=== PATIENT | female | born 1955 | race Caucasian/White ===

== ENCOUNTER 2016-11-25 08:29 | Outpatient (RCR) | payer OTHER ==
[~2016-11-25 08:29] MED LIST: ACID REDUCER PO; ACTOS 45MG45 MG/TAB PO; AMBIEN 10MG10 MG PO; AVAPRO300 M1 PO; AVAPRO300 MG PO; DIFLUCAN200 MG PO; FISH OIL CONC1000 MG PO; FLAXSEED OIL1000 MG PO; GLUCOSAMINE/CHONDROI PO; GLUCOSAMINE500 M2 PO; HCTZ 25MG25 MG PO; HCTZ12.5TAB PO; LEVOTHYROXIN PO; MOBIC15 MG PO; PROVENTIC PO; PROVENTIL0.09 MG/A1 IH; SYNTHROID 0.0.025 MG PO; SYSTANE 0.4%-0.1 SOL OP; TYLENOL 500MG500 MG PO; TYLENOL W/COD1 UDTAB PO; ULTRAM 50MG TAB50 MG PO; VITAMIN D 50,1.25 MG PO; VOLTAREN GEL 1%1 TU TP; ZYRTEC 10MG10 MG PO; [UNRECOGNIZED DRUG - OTHER] IH
== END 2017-02-23 ==
LOC: WSOH
DX: S61.011A Laceration without foreign body of right thumb without damage to nail, initial encounter (principal); W26.8XXA Contact with other sharp object(s), not elsewhere classified, initial encounter; Y92.214 College as the place of occurrence of the external cause

== ENCOUNTER → 2017-02-01 | Outpatient (CLI) | payer BC | LOC: MC.RAD 14:04 | DX: Z12.31 Encounter for screening mammogram for malignant neoplasm of breast (principal) ==

== ENCOUNTER → 2018-04-04 | Outpatient (CLI) | payer BC | LOC: MC.RAD 09:40 | DX: Z12.39 Encounter for other screening for malignant neoplasm of breast (principal) ==

== ENCOUNTER 2018-12-26 11:48 | Emergency (ER) | payer BC ==
[~2018-12-26] VITALS: Ht 160 cm; Wt 130.5 kg
[2018-12-26 11:54] VITALS: TEMP 98.7
[2018-12-26 12:23] LABS: BASO # 0.1 (0.0-0.2); BASO % 0.7 % (0.0-2.0); EOS # 0.1 (0.0-0.7); EOS % 1.5 % (0-4.0); GRAN # 4.5 (1.4-6.5); HEMATOCRIT 37.2 % (37.0-47.0); HEMOGLOBIN 12.6 g/dl (12.5-16.0); LYMPH # 2.3 (1.2-3.4); MEAN CELL VOLUME 88 fl (80.0-100.0); MEAN CORPUSCULAR HEMOGLOBIN 30 pg (27.0-31.0); MEAN CORPUSCULAR HGB CONC 34 g/dl (33.0-37.0); MEAN PLATELET VOLUME 11.3 fl (7.4-10.4); MONO # 0.4 (0.1-0.6); MONO % 5.1 % (1.7-9.3); PLATELET COUNT 191 K/mm3 (130-400); RED BLOOD COUNT 4.22 M/mm3 (4.10-5.30); REDCELL DISTRIBUTION WIDTH-CV 12.6 % (11.5-14.5)
[2018-12-26] MEDS ORDERED: ASPIRIN 81M81 MG/TA2 PO (12:28)
[2018-12-26] MEDS ORDERED: ESTRACE0.5 MG PO (12:29)
[2018-12-26] MEDS ORDERED: ZANTAC 300300 MG PO (12:29)
[2018-12-26 12:31] LABS: PROTHROMBIN TIME 11.3 SECONDS (9.7-12.8)
[2018-12-26 12:38] LABS: ALANINE AMINOTRANSFERASE 13 U/L (9-52); ALBUMIN 4.2 gm/dL (3.5-5.0); ALKALINE PHOSPHATASE 84 U/L (50-136); ANION GAP 10 mmol/L (7-16); AST,SGOT 23 U/L (15-37); BILIRUBIN,TOTAL 0.4 mg/dL (0.0-1.0); BLOOD UREA NITROGEN 16 mg/dL (7-17); CALCIUM 9.5 mg/dL (8.4-10.2); CARBON DIOXIDE 26 mmol/L (22-30); CHLORIDE 104 mmol/L (98-107); CREATININE, serum 0.89 (0.52-1.25); GLUCOSE 148 mg/dL (74-106); POTASSIUM 3.6 mmol/L (3.4-5.0); SODIUM 140 mmol/L (137-145); TOTAL PROTEIN 7.7 gm/dL (6.4-8.2)
[2018-12-26 12:54] LABS: TROPONIN-I < 0.012 ng/mL (0.000-0.035)
[2018-12-26] MEDS ORDERED: NORVASC 5MG5 MG/TAB PO (13:59)
[2018-12-26 14:11] VITALS: BP 159/90; PULSE 82
== END 2018-12-26 14:12 | disposition home or self-care (01) ==
LOC: COL.ER 11:48
PROVIDERS: Family Medicine
DX: I10 Essential (primary) hypertension (principal); R06.00 Dyspnea, unspecified
CPT/HCPCS: J1100; J1200; Q9967

== ENCOUNTER → 2019-05-09 | Outpatient (CLI) | payer BC ==
[~2019-05-09] MED LIST changes: +ASPIRIN 81M81 MG/TA2 PO; +ESTRACE0.5 MG PO; +NORVASC 5MG5 MG/TAB PO; +ZANTAC 300300 MG PO
== END ==
LOC: MC.RAD 07:41
DX: Z12.31 Encounter for screening mammogram for malignant neoplasm of breast (principal)

== ENCOUNTER 2022-10-09 07:34 | Day surgery (SDC) | payer MEDICARE, BC ==
[2022-10-09 08:55] VITALS: BP 120/60; PULSE 54; TEMP 97.7
--- NOTE | 2022-10-09 08:55 | NUR ---
PATIENT AMBULATED TO CHAIR WITH STANDBY ASSIST. PATIENT ALERT AND ORIENTED, DENIES PAIN AND NAUSEA. BREATHING REGULAR AND UNLABORED. SKIN WARM AND DRY. NURSE HANDOFF COMPLETED IN ROOM. SEE CHART FOR VITALS. PATIENT HAD GRAPE JUICE AND A MUFFIN, BOTH TOLERATED WELL. PATIENT RESTING IN CHAIR WITH CALL LIGHT IN REACH.
[2022-10-09 09:00] VITALS: BP 119/63; PULSE 55
[2022-10-09 09:15] VITALS: BP 123/72; PULSE 56
--- NOTE | 2022-10-09 09:15 | NUR ---
DR. RODRIGUEZ MET WITH PATIENT TO DISCUSS PROCEDURE. DISCHARGE TEACHING COMPLETED WITH PRINTED EDUCATION AND INSTRUCTIONS GIVEN TO PATIENT. PATIENT VERBALIZED UNDERSTANDING OF TEACHING. IV REMOVED. PATIENT DISCHARGED HOME WITH [facility].
[2022-10-09] MEDS ORDERED: SYNTHROID0.2 MG/TAB PO (09:19)
[2022-10-09] MEDS ORDERED: ALDACTONE50 MG PO (09:20)
[2022-10-09] MEDS ORDERED: TRANDATE 100MG100 MG PO (09:21)
[2022-10-09] MEDS ORDERED: AMBIEN 10MG10 MG PO (09:22)
[2022-10-09] MEDS ORDERED: VITAMIND3 5000 PO (09:22)
[2022-10-09] MEDS ORDERED: MOBIC15 MG PO (09:24)
[2022-10-09] MEDS ORDERED: ESTRACE0.5 MG PO (09:25)
[2022-10-09] MEDS ORDERED: ASPIRIN 81M81 MG/TA2 PO (09:27)
[2022-10-09] MEDS ORDERED: FLAXSEED OIL1000 MG PO (09:27)
[2022-10-09] MEDS ORDERED: STOOL SOFTENER100 M2 PO (09:29)
[2022-10-09] MEDS ORDERED: ZYRTEC 10MG10 MG PO (09:30)
[2022-10-09] MEDS ORDERED: TOUJEO300 U/ML SQ (09:31)
== END 2022-10-09 09:30 | disposition home or self-care (01) ==
LOC: SDCO 07:34
DX: Z12.11 Encounter for screening for malignant neoplasm of colon (principal); K21.9 Gastro-esophageal reflux disease without esophagitis
CPT/HCPCS: J2704; J7120